=== PATIENT | male | born 1990 | race Asian ===

== ENCOUNTER 2019-11-04 13:47 | Emergency (ER) | payer SELFPAY ==
[~2019-11-04] VITALS: Ht 170.2 cm; Wt 76.4 kg
[2019-11-04] MEDS ORDERED: PENICILLIN G BENZATHINE LA 1,200,000 UNITS/2 ML SYRINGE IM ONE (14:30)
[2019-11-04] MEDS ORDERED: IBUPROFEN 800 MG TABLET PO ONE (14:30)
[2019-11-04] MEDS ORDERED: DEXAMETHASONE SOD PHOS 4 MG/ML 5 ML VIAL IM ONE (14:30)
[2019-11-04 15:06] VITALS: BP 141/81
== END 2019-11-04 15:08 | disposition home or self-care (01) ==
LOC: EMS 13:47
DX: J02.0 Streptococcal pharyngitis (principal)
CPT/HCPCS: 96372; 99284; J0561; J1100